=== PATIENT | female | born 1980 | race Caucasian/White ===

== ENCOUNTER 2021-11-05 05:24 | Emergency (ER) | payer OTHER ==
[~2021-11-05 05:24] MED LIST: ATARAX25 MG PO; BENTYL10 MG PO; BUSPIRONE HCL15 M1 PO; BUSPIRONE HCL7.5 MG PO; CLEOCIN300 MG PO; COLESTIPOL HCL1 GM PO; CYMBALTA 30MG C30 MG PO; DULOXETINE HCL30 MG PO; GIANVI 3 MG-0.1 EACH PO; K-DUR20 MEQ PO; LACTINEX1 EACH PO; MAG-OXIDE 400M400 MG PO; MINIPRES1 MG PO; MINIPRESS2 MG PO; MOTRIN600 MG PO; NIKKI 3 MG-0.01 EACH PO; OMEPRAZOLE 20MG20 MG PO; PRAMIPEXOLE DIHY1 MG PO; QUETIAPINE FUMA50 MG PO; SEROQUEL 100MG100 MG PO; ZOFRAN4 MG PO
[2021-11-05 06:29] LABS: BASOPHIL 0.7 % (0-2); EOSINOPHIL 0.2 % (0-5); HCT 34.3 % (37.0-47.0); HGB 11.8 g/dl (12.5-16.0); LYMPHOCYTE 9.1 % (15-48); MCH 28.9 pg (25.0-31.0); MCHC 34.4 g/dL (32.0-36.0); MCV 84.1 fL (78.0-100.0); MONOCYTE 12.3 % (0-12); MPV 11.3 fL (6.0-9.5); NEUTROPHIL 77.2 % (41-80); NRBC 0; PLT 298 K/uL (150-400); RBC 4.08 M/uL (4.20-5.40); WBC 18.9 K/uL (4.0-10.5)
[2021-11-05 07:00] LABS: CORONAVIRUS 2019 SARS-COV-2 NEGATIVE (NEGATIVE); INFLUENZA A NAA NEGATIVE (NEGATIVE)
[2021-11-05 07:03] LABS: ALBUMIN 3.8 g/dL (3.4-5.0); BILIRUBIN - TOTAL 0.9 mg/dL (0.2-1.0); CREATININE 1.13 mg/dL (0.51-0.95); GLOBULIN (CALCULATION) 3.8 g/dL; POTASSIUM 3.3 mmol/L (3.5-5.1); TOTAL PROTEIN 7.6 g/dL (6.4-8.2)
[2021-11-05 10:17] LABS: BARBITURATES NEGATIVE (NEGATIVE); ECSTASY (MDMA) NEGATIVE (NEGATIVE); MARIJUANA (THC) NEGATIVE (NEGATIVE); METHADONE NEGATIVE (NEGATIVE); OPIATES NEGATIVE (NEGATIVE)
[2021-11-05 10:18] LABS: AMPHETAMINES POSITIVE (NEGATIVE); OXYCODONE NEGATIVE (NEGATIVE)
== END 2021-11-05 13:35 | disposition home or self-care (01) ==
LOC: FER 05:24
PROVIDERS: Emergency Medicine
DX: R06.02 Shortness of breath (principal); F15.90 Other stimulant use, unspecified, uncomplicated; F17.200 Nicotine dependence, unspecified, uncomplicated; Z88.1 Allergy status to other antibiotic agents; Z20.822 Contact with and (suspected) exposure to COVID-19
CPT/HCPCS: 36415; 71045; 71275; 80053; 80305; 84484; 84702; 85025; 85379; J1200; J1630; J2060; Q9967; U0002

== ENCOUNTER 2022-01-06 17:21 | Emergency (ER) | payer OTHER ==
[2022-01-06 18:20] LABS: INFLUENZA A NAA NEGATIVE (NEGATIVE)
[2022-01-06 18:21] LABS: CORONAVIRUS 2019 SARS-COV-2 POSITIVE (NEGATIVE)
[2022-01-06 18:47] LABS: BASOPHIL 0.9 % (0-2); EOSINOPHIL 0.2 % (0-5); HCT 37.9 % (37.0-47.0); LYMPHOCYTE 11.6 % (15-48); MCHC 31.7 g/dL (32.0-36.0); MCV 88.6 fL (78.0-100.0); MONOCYTE 16.4 % (0-12); MPV 10.4 fL (6.0-9.5); NEUTROPHIL 70.4 % (41-80); NRBC 0; PLT 220 K/uL (150-400); RBC 4.28 M/uL (4.20-5.40); RDW 14.6 % (11.5-14.0); WBC 4.4 K/uL (4.0-10.5)
[2022-01-06 19:03] LABS: POTASSIUM 3.3 mmol/L (3.5-5.1)
== END 2022-01-06 20:57 | disposition home or self-care (01) ==
LOC: FER 17:21
PROVIDERS: Emergency Medicine; Nurse Practitioner Family
DX: U07.1 COVID-19 (principal); I10 Essential (primary) hypertension; Z79.899 Other long term (current) drug therapy; Z88.8 Allergy status to other drugs, medicaments and biological substances
CPT/HCPCS: 36415; 71045; 80048; 85025; 85379; J1885; J2405; J7030; U0002